=== PATIENT | female | born 1950 | race Caucasian/White ===

== ENCOUNTER 2016-08-17 03:42 | Inpatient (IN) | payer OTHER, MEDICARE ==
[~2016-08-17] VITALS: Ht 167.6 cm; Wt 88.5 kg
[~2016-08-17 03:42] MED LIST: ASPIRIN EC81 M1 PO; ATIVAN0.5 M1 PO; CITALOPRAM HBR20 MG PO; HYZAAR 100-251 EACH PO; LEVOTHYROXINE100 MC1 PO; METOPROLOL SUCC50 M2 PO; PRAVACHOL40 M1 PO
[2016-08-17] MEDS ORDERED: ASPIRIN81 M4 PO (10:28)
--- NOTE | 2016-08-17 10:52 | Admission Core Measures ---
Admission Meds I reviewed the following Meds: Current Medications Sig/Jennifer Start time Last Medication Dose Stop Time Status Admin Acetaminophen 975 MG ONCE 08/17 0000 NR (Tylenol) 08/17 2358 Cefazolin Sodium 2,000 MG ONCE 08/17 0000 NR (Kefzol-Ancef Inj) 08/17 2358 Citalopram 20 MG DAILY 08/18 1000 AC Hydrobromide (Celexa) Levothyroxine Sodium 0.1 MG DAILY AC 08/18 0700 AC (Synthroid) Lorazepam 0.5 MG BID PRN 08/17 1015 AC (Ativan) 08/24 1014 Losartan Potassium 100 MG DAILY 08/18 1000 AC (Cozaar) Metoprolol Succinate 50 MG DAILY 08/18 1000 AC (Toprol Xl) Oxycodone HCl 10 MG ONCE 08/17 0000 NR (Roxicodone) 08/17 2358 Pravastatin Sodium 20 MG 1700 08/17 1700 AC (Pravachol) Acute Coronary Syndrome Inclusion Criteria ACS Diagnosis No Inpatient Core Measures LDL Reminder: If No, please order W/I first 24hr of stay Congestive Heart Failure Inclusion Criteria CHF Diagnosis No Cerebrovascular accident Inclusion Criteria CVA/TIA Diagnosis No Inpatient Core Measures Bedside Swallow Eval Reminder: If BSE failed, place ST order Antithrombotic Reminder: Order Antithrombotic Medication by end of day 2 Antithrombotic Reminder: Document Reason Antithrombotic Not ordered by end of day 2 AFIB/Flutter Reminder: If Present, add to problem list AFIB/Flutter Reminder: Order Anticoag Medication for pts with AFIB/Flutter Atherosclerosis Reminder: If Present, add to problem list LDL Reminder: If No, please order W/I first 24hr of stay PT Order Reminder: If No, please order Venous thromboembolism Inpatient Core Measures VTE Risk Factors: Age > 40, Surgery VTE Prophylaxis [facility] prophylaxis d/t No contraindications No VTE Pharm Prophylaxis d/t No contraindications Inclusion Criteria - Per Current guidelines, there needs to be overlap - treatment for the first 5 days of Warfarin therapy. - Parenteral Anticoagulation (IV or SC) needs to be - given along with Warfarin therapy. VTE Diagnosis No VTE Type NONE VTE Confirmed by (Test) NONE Problem List As ranked by this Provider includes Assessment & Plan 1. Status post total hip replacement, right HOME MEDS Home Med List Aspirin (Aspirin*) 81 MG TAB.CHEW 1 TAB PO DAILY HEART HEALTH (Reported) Citalopram Hydrobromide (Citalopram HBr) 20 MG TABLET 1 TAB PO DAILY ANXIETY (Reported) Levothyroxine Sodium 100 MCG TABLET 1 TAB PO DAILY THYROID (Reported) Lorazepam (Ativan) 0.5 MG TABLET 1 TAB PO BIDP PRN ANXIETY (Reported) Losartan/Hydrochlorothiazide (Hyzaar 100-25 Tablet) 100 MG-25 MG TABLET 1 TAB PO DAILY BP (Reported) Metoprolol Succinate 50 MG TAB.ER.24H 1 TAB PO DAILY BP (Reported) Pravastatin Sodium (Pravachol) 40 MG TABLET 1 TAB PO DAILY CHOLESTEROL ( Reported) Discontinued Medications Aspirin (Ecotrin*) 81 MG TABLET.DR 1 TAB PO DAILY HEARTHEALTH (Reported) Discontinued reason: Changed Dose
--- NOTE | 2016-08-17 11:13 | Patient Discharge Instructions ---
Discharge Instructions General Discharge Information You were seen/treated for: Hip pain You had these procedures: Total hip replacement Watch for these problems: temp>101, increased redness or drainage of wounds No bath, but you may shower: Yes Other wound care: Keep incision clean and dry. May shower, no bathing or soaking Diet Continue normal diet: Yes Activity Activity Self Limited: Yes Activity Limited to: Weight bear as tolerated Acute Coronary Syndrome Inclusion Criteria At DC or during hospital stay patient has or had the following: ACS DIAGNOSIS No Discharge Core Measures Meds if any: Prescribed or Continued at Discharge Meds if any: NOT Prescribed or Continued at Discharge Congestive Heart Failure Inclusion Criteria At DC or during hospital stay patient has or had the following: CHF DIAGNOSIS No Discharge Core Measures Meds if any: Prescribed or Continued at Discharge Meds if any: NOT Prescribed or Continued at Discharge Cerebrovascular accident Inclusion Criteria At DC or during hospital stay patient has or had the following: CVA/TIA Diagnosis No Discharge Core Measures Meds if any: Prescribed or Continued at Discharge Meds if any: NOT Prescribed or Continued at Discharge Venous thromboembolism Inclusion Criteria VTE Diagnosis No VTE Type NONE VTE Confirmed by (Test) NONE Discharge Core Measures - Per Current guidelines, there needs to be overlap - treatment for the first 5 days of Warfarin therapy. - If discharged on Warfarin prior to 5 days of - overlap therapy, the patient will need to be - assessed for post discharge needs including - *Post discharge parental anticoagulation - *Warfarin and/or parental anticoagulation education - *Follow up date to check INR post discharge At least 5 days overlap therapy as Inpatient No Meds if any: Prescribed or Continued at Discharge Note: Overlap Therapy is Warfarin and Anticoagulant Meds if any: NOT Prescribed or Continued at Discharge
--- NOTE | 2016-08-17 11:15 | Surg Short-stay <48hrs Dis Sum ---
Visit Information Visit Dates Admission Date: 08/17/16 Discharge Date: 08/20/16 Surgical Short Stay DC Summary Admission Diagnosis: Hip pain Final Diagnosis: s/p R THR Procedure(s): R THR, see operative report Summary/Significant Findings: Pt underwent R THR by Dr Murcia on 08/17. She was brought to the PACU in stable condition. Post op she was tolerating a regular diet and voiding spontaneously. Her pain was well controlled and she was able to walk with PT - WBAT. She was deemed stable for dischrage home with services. Condition at Discharge: good Discharge Disposition: home health services Discharge instructions provided to patient/family: Yes Post discharge follow-up plan: Keep scheduled appointment, call sooner if needed
[2016-08-17] MEDS ORDERED: ASPIRIN EC325 M2 PO (11:23)
[2016-08-17] MEDS ORDERED: MS CONTIN15 M2 PO ×2 (11:23→14:29)
[2016-08-17] MEDS ORDERED: MIRALAX17 G1 PO (11:23)
[2016-08-17] MEDS ORDERED: COLACE100 M1 PO (11:23)
[2016-08-17] MEDS ORDERED: DILAUDID2 M1 PO (11:23)
--- NOTE | 2016-08-17 13:40 | Operative Report ---
Operative/Inv Procedure Report Surgery Date: 08/17/16 Name of Procedure: Right total hip replacement Pre-Operative Diagnosis: Primary right hip DJD Post-Operative Diagnosis: Same Estimated Blood Loss: 300 Surgeon/Diesel Mechanic Farm: SALVADOR FLORES,ANASTASIA Marcum Anesthesia: general endotracheal tube Operative/Procedure Note Note: Description of Procedure: The patient was taken to the operating room and positively identified. After induction of general anesthesia and administration of appropriate pre-operative antibiotics, the patient was positioned supine on the operating room table and all bony prominences were well padded. After performing a surgical timeout, the right lower extremity was prepped and draped in the usual sterile fashion. A direct anterior approach was made to the right hip. The incision was carried sharply through superficial soft tissues to the level of the fascia. Meticulous hemostasis was maintained with Bovie electocautery. The fascia over the tensor fascia shabana muscle was opened sharply and the interval between the TFL and the sartorius was entered bluntly taking care to stay lateral to the lateral femoral cutaneous nerve. Retractors were placed around the femoral neck and the pericapsular fat was identified. The ascending branches of the lateral femoral circumflex vessels were identified and carefully coagulated. The pericapsular fat and anterior capsule were then resected. A napkin ring osteotomy was performed and the femoral head was removed without difficulty. Attention was then turned to the acetabulum. After appropriate placement of retractors, the acetabulum was exposed. Soft tissue was cleaned from the acetabular margin and notch. Overhanging osteophytes were removed and the teardrop was exposed. The acetabulum was then sequentially reamed to accept a 52 mm Mohini Tritanium hemispherical solid back shell. This was impacted into place in the appropriate position and fitted with a 32 mm Trident X3 zero degree polyethylene insert. Attention was then turned to the femur. After performing the appropriate ligament releases, the proximal femur was exposed. It was then sequentially broached to accept a size 4 [place] accolade 2 stem. This was trialed for leg length and stability. The trial component was removed and the final component was impacted into place. The trunnion was carefully cleaned and fit with a 32 mm, -4 Biolox delta ceramic femoral head. The hip was reduced and put through a full range of motion and found to be stable. The articular space was then irrigated with sterile saline. The periarticular soft tissues were infilitrated with Marcaine. The fascial layer was closed with interrupted #1 vicryl suture and the skin was re-approximated with interrupted 2 -0 vicryl. The skin was closed with a running 3-0 V-Lock suture. Steri-strips and a sterile dressing were applied. The patient was awakened and taken to the recovery room in satisfactory condition.
--- NOTE | 2016-08-17 15:22 | RADIOLOGY REPORT ---
EXAMINATION: XR HIP, RIGHT CLINICAL INFORMATION: Right hip replacement. COMPARISON: None TECHNIQUE: Two views of the right hip. FINDINGS: Status post right hip replacement. Orthopedic components in good position. No radiographic evidence of loosening. No fracture. No dislocation. IMPRESSION: Status post right hip replacement. No acute abnormality.
--- NOTE | 2016-08-17 15:52 | PN- Orthopedic ---
Subjective Subjective: The patient was seen postoperatively this evening. She reports her pain is under adequate control and has no other problems with the current time. She denies any chest pain or difficulty breathing. Objective Vital Signs and I&Os Vital signs: Blood pressure 144/78, pulse 62, temperature 97.3, O2 saturation 99 % on 2 L via nasal cannula I's and O's: 2200 ML's in of lactated Ringer's/260 ML's out of urine via Smith catheter/EBL 200 Physical Exam: Gen.: Alert and in no obvious distress Skin: Warm and dry Cardiac: S1-S2 regular Pulmonary: Bilateral breath sounds are equal and decreased at bases Extremities: Bilateral lower extremities are warm without calf tenderness or significant edema. Gross motor and sensory are intact. Right hip surgical dressing is clean, dry, and intact without signs of infection. Assessment/Plan Assessment/Plan Assessment: 65-year-old female status post right total hip arthroplasty. Postoperatively the patient is progressing as expected and her pain is under adequate control. Plan: Out of bed with physical therapy patient is weightbearing as tolerated Continue current pain regiment 2 doses of prophylactic postoperative antibiotics Advance diet as tolerated Monitor for postoperative Smith removal void GI and DVT prophylaxis, start aspirin 325mg po bid first dose tonight Resume home medications Core Measures/Miscellaneous Venous Thromboembolism VTE Risk Factors: Age > 40, Obesity, Surgery VTE Contraindications: No Contraindications VTE Prophylaxis Ordered Inpt: [facility]ch [facility] Pharm VTE Diagnosis: No VTE Type: NONE VTE Confirmed by (Test): NONE Beta Bruce Is Beta Bruce a Home Med? Yes If Yes, Was This Ordered Today? Yes Antibiotics Is Patient on Antibiotics? Yes If Yes: prophylaxis
[2016-08-17 18:22] VITALS: BP 118/68
[2016-08-17 21:36] VITALS: BP 109/60
[2016-08-17 23:06] VITALS: BP 100/60
[2016-08-18] VITALS (8 sets, daily range): BP systolic 64–118; BP diastolic 48–70
--- NOTE | 2016-08-18 00:30 | NUR ---
PATIENT ARRIVED TO FLOOR AT 1620 VIA STRETCHER. PHYSICAL THERAPY ATTEMPTED TO AMBULATE PATIENT FROM STRETCHER TO THE ROOM HOWEVER PATIENT GOT NASEAUS AND DIZZY. VITAL SIGNS TAKEN, PATIENT VERY HYPOTENSIVE, SURGICAL PA NOTIFIED IMEDIATELY AT 1630 OF BP OF 70/48. PER SURGICAL PA, PATIENT BROUGHT BACK TO BED AND VITALS RECHECKED IN 15 MINUTES. PATIENT APPEARED MORE CALM AND LESS PALE. BP: 120/70, PULSE 57. VITALS CHECKED EVERY TWO HOURS. PATIENT REMAINED ASYMPTOMATIC THROUGHOUT SHIFT AND VITALS REMAINED STABLE.
--- NOTE | 2016-08-18 01:56 | NUR ---
PATIENT VS AT 2305 WERE 100/60 AND HR 67. AT THIS TIME DURING BEDSIDE REPORT PATIENT STATED THAT SHE HAS BEEN UNABLE TO VOID ON BEDPAN BUT FEELS THE URGE TO VOID; SHE ALSO STATED HER PAIN WAS 10/10 AT THIS TIME. PT MEDICATED WITH IV MORPHINE PER EMAR. PATIENT WAS THEN ASSISTED TO [facility] TO ATTEMPT TO VOID WITH ASSIST X 2. UPON TRANSFER PATIENT FELT SLIGHTLY NAUSEOUS AND DIZZY. PATIENT SUCCESSFULLY VOIDED AND WAS ASSISTED BACK TO BED. VITAL SIGNS NOW AT 0135 WERE 90/50 WITH HR OF 56 AND 92% ON RA. PATIENT PLACED ON 1L NC. SURGICAL BERT FIELDS WAS NOTIFIED WHO STATED TO RECHECK VITALS IN 2 HOURS BP AND HR DROP WAS LIKELY A SIDE EFFECT TO MORPHINE AND GETTING PATIENT OOB. WILL CONTINUE TO CLOSELY MONITOR.
--- NOTE | 2016-08-18 08:08 | PN- Orthopedic ---
Subjective Subjective: The patient was seen this morning postoperatively day 1. She reports that her pain is not adequately controlled with the current pain regiment. She is also nervous about getting up with physical therapy. The patient has no other complaints at the current time and denies any chest pain or difficulty breathing. Objective Vital Signs and I&Os Vital Signs Date Time Temp Pulse Resp B/P Pulse O2 O2 Flow FiO2 Ox Delivery Rate 08/18 0602 98.0 64 18 112/68 95 Nasal 1.0L Cannula 08/18 0208 97.9 64 18 96/64 94 Nasal 1.0L Cannula 08/18 0032 56 90/50 92 Nasal 1.0L Cannula 08/18 0000 94 Nasal 1.0L Cannula 08/17 2306 98.3 67 19 100/60 98 Nasal Cannula 08/17 2136 97.8 60 20 109/60 98 Nasal Cannula 08/17 1822 97.8 57 16 118/68 98 Nasal 1.0L Cannula 08/17 1800 98 Nasal 1.0L Cannula Intake & Output 08/18 1600 08/18 0800 08/18 0000 08/17 1600 08/17 0800 08/17 0000 Intake Total 1010 Output Total 200 Balance 810 Intake, IV 650 Intake, Oral 360 Output, Urine 200 Patient 195 lb Weight Physical Exam: Gen.: Alert and complaining of incisional pain Skin: Warm and dry Extremities: Bilateral lower extremities are warm without calf tenderness or significant edema. Gross motor and sensory are intact. Right hip dressing is clean, dry, and intact. The right thigh has expected edema and compartments are soft. Assessment/Plan Assessment/Plan Assessment: 65-year-old female status post right total hip arthroplasty postoperative day 1. The patient is progressing as expected of her pain is not adequately controlled current Plan: Start 15 mg of MS Contin by mouth twice a day in addition to the current pain regiment Out of bed with physical therapy patient is weightbearing as tolerated Hep-Lock IV fluids Follow-up morning laboratory studies GI and DVT prophylaxis Aspirin 325 mg by mouth twice a day Strict I's and O's Core Measures/Miscellaneous Venous Thromboembolism VTE Risk Factors: Age > 40, Obesity, Surgery VTE Contraindications: No Contraindications VTE Prophylaxis Ordered Inpt: [facility] VTE Diagnosis: No VTE Type: NONE VTE Confirmed by (Test): NONE Beta Bruce Is Beta Bruce a Home Med? Yes If Yes, Was This Ordered Today? Yes Antibiotics Is Patient on Antibiotics? No
[2016-08-18 08:09] LABS: ABSOLUTE BASOPHIL COUNT 0 /CUMM (0.0-0.2); ABSOLUTE EOSINOPHIL COUNT 0 /CUMM (0.0-0.7); ABSOLUTE GRANULOCYTE CT 8.1 /CUMM (1.4-6.5); ABSOLUTE LYMPH COUNT 0.8 /CUMM (1.2-3.4); ABSOLUTE MONOCYTE COUNT 0.9 /CUMM (0.10-0.60); BASOPHIL % 0.2 % (0.0-2.0); EOSINOPHIL % 0 % (0-5); GRANULOCYTE % 82.8 % (42.2-75.2); MEAN CORPUSCULAR HGB 29.1 PG (27.0-31.0); MEAN CORPUSCULAR VOLUME 85.6 FL (81.0-99.0); MEAN PLATELET VOLUME 8.9 FL (7.4-10.4); PLATELET COUNT 208 /CUMM (130-400); RBC DISTRIBUTION WIDTH 13.2 % (11.5-14.5); RED BLOOD CELL CT 3.98 /CUMM (4.20-5.40); WHITE BLOOD CELL COUNT 9.8 /CUMM (4.8-10.8)
--- NOTE | 2016-08-18 08:52 | Event Note ---
Event Note Event Note: Patient had an episode where she felt light headed after getting OOB to bedside chair. She had recently received a dose of IV morphine for surgery related pain. Manual BP showed pressure of 68/42. O2 sats were 90-94% on RA. HR WNL. Denies CP/SOB. She was returned to bed with assist x2 and put in slight trendelenburg. She was also ordered a 500ml NS bolus and placed back on O2 1L NC. After returning to bed she feels better but still mildly light headed. She never passed out during this event. Will recheck BP/vitals after bolus complete.
--- NOTE | 2016-08-18 12:49 | NUR ---
0840: PATIENTS BLOOD PRESSURE WAS 64/48; SURGICAL PA NENA WAS NOTIFIED; ADMINISTERED FLUID BOLUS AND PLACED THE PATIENT IN TRENDELENBURG POSITION; RECHECKED BP AT 0915 AND IT WAS 106/64; WILL CONTINUE TO MONITOR PATIENT.
--- NOTE | 2016-08-18 12:51 | NUR ---
1000: PER SURGICAL PA NENA HELD HYDROCHLOROTHIAZIDE, LOSARTAN, AND MS CONTIN. ADMINISTERED 50MG OF METOPROLOL PER SURGICAL PA NENA. WILL CONTINUE TO MONITOR.
--- NOTE | 2016-08-19 06:48 | NUR ---
PT IV FELL OUT OVERNIGHT, REFUSED TO HAVE NEW IV PLACED. PAGED SURGICAL PA, WAITING FOR A CALL BACK CONCERNING MEDICATIONS.
--- NOTE | 2016-08-19 07:26 | PN- Orthopedic ---
Subjective Subjective: POD#2 S/P RIGHT MILENA FEELING BETTER THIS AM STILL HVING EXPECTED HIP PAIN DENIES CP,SOB,NO N+V Objective Vital Signs and I&Os Vital Signs Date Time Temp Pulse Resp B/P Pulse O2 O2 Flow FiO2 Ox Delivery Rate 08/187 98.2 61 20 118/70 95 08/18 1431 97.7 64 20 100/55 93 08/18 1057 110/54 08/18 0939 60 106/64 100 Nasal 1.0L Cannula 08/18 0840 60 64/48 08/18 0800 Nasal 1.0L Cannula Intake & Output 08/19 0800 08/19 0000 08/18 1600 08/18 0800 08/18 0000 08/17 1600 Intake Total 120 173 101 0293 Output Total 450 300 800 200 Balance -330 200 -50 810 Intake, IV 20 150 650 Intake, Oral 120 480 600 360 Output, Urine 450 300 800 200 Patient 195 lb Weight Physical Exam: CV: RRR LUNGS: CLEAR ABD: +BS, NT/ND EXT: RIGHT HIP DRSG CHANGED WOUND C/D/I NO CALF TENDERNESS BILAT DISTAL CMS INTACT BILAT Assessment/Plan Assessment/Plan ORTHO STABLE DENIES DIZZINESS WHEN SUPINE PLAN RESUME PT TODAY RESTART IV NOW TORADOL IV FOR PAIN SLOWLY RE INTRODUCE NARCS HOME D/C PLANNING Core Measures/Miscellaneous Venous Thromboembolism VTE Risk Factors: Age > 40, Obesity, Surgery VTE Contraindications: No Contraindications VTE Prophylaxis Ordered Inpt: [facility] VTE Diagnosis: No VTE Type: NONE VTE Confirmed by (Test): NONE Beta Bruce Is Beta Bruce a Home Med? Yes If Yes, Was This Ordered Today? Yes Antibiotics Is Patient on Antibiotics? No
[2016-08-19 08:41] VITALS: BP 96/60
[2016-08-19 09:39] VITALS: BP 110/70
[2016-08-19 12:35] VITALS: BP 110/74
[2016-08-19 14:34] VITALS: BP 110/62
[2016-08-19 23:00] VITALS: BP 130/76
[2016-08-20 06:53] VITALS: BP 130/80
[2016-08-20 10:53] VITALS: BP 130/80
--- NOTE | 2016-08-20 11:10 | PN- Orthopedic ---
Subjective Subjective: Patient reporting adequate pain control. States that she has yet to move bowels and is requesting suppository. Denies nausea and vomitting. Denies chest pain, shortness of breath and difficulty breathing. Objective Vital Signs and I&Os Vital Signs Date Time Temp Pulse Resp B/P Pulse O2 O2 Flow FiO2 Ox Delivery Rate 08/20 1053 75 130/80 08/20 1052 74 130/80 08/20 0653 98.9 73 20 130/80 93 Room Air 08/19 2300 98.6 70 20 130/76 93 Room Air 08/19 1434 98.1 70 20 110/62 95 08/19 1235 70 110/74 95 Room Air Intake & Output 08/20 1600 08/20 0800 08/20 0000 08/19 1600 08/19 0800 08/19 0000 Intake Total 100 110 800 120 500 Output Total 2 450 300 Balance 100 110 798 -330 200 Intake, IV 10 20 Intake, Oral 100 100 800 120 480 Output, Urine 2 450 300 Physical Exam: General: Alert and oriented x3, no acute distress Cardiac: RRR, s1s2 Pulmonary: C T A bilaterally Abdomen: Non-tender, non-distended Extremities: Moves all extremities, distal sensation intact, motor 5/5 in plantar and dorsi flexion. Skin warm and well perfused. DP pulses palpable bilaterally. Bilateral calves soft and non-tender Surgical site: Right hip, dressing dry and intact, thigh compartment soft. Assessment/Plan Assessment/Plan This is a 65 year old female, POD 4, S/p r james, doing well -Dulcolax suppository now -OOB, wbat -Diet as tolerated -Continue current pain regimen -Plan for discharge today Core Measures/Miscellaneous Venous Thromboembolism VTE Risk Factors: Age > 40, Obesity, Surgery VTE Contraindications: No Contraindications VTE Prophylaxis Ordered Inpt: [facility] Pharm VTE Diagnosis: No VTE Type: NONE VTE Confirmed by (Test): NONE Beta Bruce Is Beta Bruce a Home Med? Yes If Yes, Was This Ordered Today? Yes Antibiotics Is Patient on Antibiotics? No
[2016-08-20] MEDS ORDERED: ULTRAM50 M1 PO (11:14)
== END 2016-08-20 15:40 | disposition home health service (06) | DRG 470 ==
LOC: ENRESERVDT → ENRESERVTM → ENPENDDIS 03:42 → 2NA 03:42 → SDA 03:42 → 2NA 16:17
PROVIDERS: Physician Assistant Surgical; ADMIT Orthopaedic Surgery
PROC: 0SR904A Replacement of Right Hip Joint with Ceramic on Polyethylene Synthetic Substitute, Uncemented, Open Approach (ICD-10-PCS; principal; 2016-08-17)
DX: M16.11 Unilateral primary osteoarthritis, right hip (principal); I10 Essential (primary) hypertension; I95.1 Orthostatic hypotension; T40.2X5A Adverse effect of other opioids, initial encounter; E03.9 Hypothyroidism, unspecified
CPT/HCPCS: 2NAP; 73502-RT; 82436; 88304; 97110-GO; 97116-GO; 97530-GO; C9399; J0690; J0735; J1885; J3490; J7040; J7042